=== PATIENT | male | born 1935 | race Caucasian/White ===

== ENCOUNTER → 2017-02-14 | Outpatient (CLI) | payer OTHER ==
[~2017-02-14] MED LIST: ASPIR 8181 MG PO; LIPITOR 20 MG T20 M1 PO; METOPROLOL SUCC50 MG PO; PLAVIX 75 MG TA75 MG PO; PROTONIX40 M4 PO; VYTORIN 10-401 EACH PO; ZOLOFT50 MG PO
[2017-02-14 09:27] LABS: CALCIUM 8.7 mg/dL (8.5-10.1); CREATININE 1.2 mg/dL (0.7-1.3); POTASSIUM 4.4 mmol/L (3.5-5.1)
== END ==
LOC: LAB 08:38
PROVIDERS: Internal Medicine
DX: I71.4 Abdominal aortic aneurysm, without rupture (principal); I70.90 Unspecified atherosclerosis; K80.80 Other cholelithiasis without obstruction

== ENCOUNTER 2017-04-10 05:27 | Inpatient (IN) | payer OTHER ==
[2017-04-05 10:07] LABS: HEMATOCRIT 42.3 % (42.0-52.0); HEMOGLOBIN 14.2 gm/dL (14.0-18.0); MCH 30.7 pg (26.0-34.0); MCHC 33.5 g/dL (28.0-37.0); MCV 91.7 fL (80.0-100.0); RBC 4.61 mil/uL (4.50-6.00); RDW 14.2 % (10.5-14.5); WBC 6.9 thou/uL (4.0-11.0)
[2017-04-05 10:08] LABS: URINE BILIRUBIN NEGATIVE (Negative); URINE BLOOD NEGATIVE (Negative); URINE COLOR YELLOW; URINE GLUCOSE-RANDOM* NEGATIVE (Negative); URINE KETONES NEGATIVE (Negative); URINE LEUKOCYTES-REFLEX NEGATIVE (Negative); URINE PROTEIN (DIPSTICK) NEGATIVE (Negative); URINE UROBILINOGEN 0.2 E.U./dl (0.2-1.0)
[2017-04-05 10:21] LABS: ALBUMIN 3.9 g/dL (3.4-5.0); APTT 28.3 Seconds (24.5-32.8); CALCIUM 8.9 mg/dL (8.5-10.1); CREATININE 1.2 mg/dL (0.7-1.3); POTASSIUM 4.4 mmol/L (3.5-5.1); PROTIME 10.3 Seconds (9.3-11.4); TOTAL BILIRUBIN 0.6 mg/dL (<0.1-1.0); TOTAL PROTEIN 7.4 g/dL (6.4-8.2)
[2017-04-10] VITALS (37 sets, daily range): BP systolic 91–160; BP diastolic 41–98
[~2017-04-10] VITALS: Ht 167.6 cm; Wt 78.9 kg
--- NOTE | ~2017-04-10 | EKG ---
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 04/11/17 0826 10 10 Keanu Brown MD, [facility] /EPI
--- NOTE | ~2017-04-10 | HC ---
[facility] [address] CONSULTATION Name: JAMES RYAN Gagandeep Room #: 203-P [facility] IN M.R.#: [id number] Admission: 04/10/17 Attend Phys: Mihir Jasso MD Discharge: 04/12/17 Date of : 35 Report #: [id number] THIS REPORT FOR: //name// CC: Brandon Jasso MD REASON FOR CONSULTATION: Sore throat. HISTORY OF PRESENT ILLNESS: This is an 81-year-old male who went through an angiographic AAA stent placement. He did have local anesthetic as well as sedations and had some suctioning of his throat afterward. He has had severe sore throat since then. His uvula is markedly swollen. PHYSICAL EXAMINATION: EARS: Normal tympanic membranes. NOSE: Normal mucosa. ORAL: Swollen, inflamed uvula. NECK: No adenopathy or palpable masses. ASSESSMENT: Acute uvula trauma and inflammation likely from oral suctioning. RECOMMENDATIONS: 1. Pain management with ibuprofen or naproxen sodium. 2. Ice or cool liquids. 3. If bothersome enough, consider Medrol Dosepak. 4. Follow up p.r.n. By: [id number] Lefty Whaley MD /nt
--- NOTE | ~2017-04-10 | O ---
[facility] [place] [address] OPERATIVE REPORT Name: JAMES RYAN Gagandeep Room #: 203-P [facility] IN M.R.#: [id number] Admission: 04/10/17 Attend Phys: Mihir Jasso MD Discharge: 04/12/17 Date of : 35 Report #: [id number] THIS REPORT FOR: //name// CC: Brandon Jasso DATE OF SERVICE: 04/10/2017 PREOPERATIVE DIAGNOSIS: Abdominal aortic aneurysm. POSTOPERATIVE DIAGNOSIS: Abdominal aortic aneurysm. OPERATION: Stent graft implant for abdominal aortic aneurysm with appropriate arteriography and angioplasty of common iliac arteries. SURGEON: Mihir Jasso MD and Oseas Ardon MD. CHEMICAL PLANT TECHNICAL DIRECTOR: Luke. ANESTHESIA: General. INDICATIONS: The patient is an 81-year-old with an infrarenal abdominal aortic aneurysm. The patient has aneurysm in the 5 cm range. In addition, he has bilateral common iliac stenoses (right worse than left). FINDINGS AND TECHNIQUE: After general anesthesia was established, incisions were made in the groins to expose the common deep and superficial femoral artery on each side, 10,000 units of heparin were given. On each side, 6-Syrian introducer sheaths were placed using Amplatz needle, wire, and Seldinger technique. Exchanged catheters were passed over wires and used to place Amplatz stiff wires over these on each side. Femoral artery cutdown was done and on the right side, the 18-Syrian sheath was placed; on the left side, the 12-Syrian sheath was placed. With the sheaths in place, the ipsilateral main component was introduced. A 26 x 12 mm x 14 cm device was placed through the left side. A visceral catheter was used to gain access to the left lowest renal artery and this was selectively catheterized and a wire was placed in it and using this as our guide, we were able to land the main component accurately below the renal arteries. The contralateral gate was cannulated and then presence within the main component was ascertained with the pigtail spin technique. [facility] [address] [place] [address] OPERATIVE REPORT Name: CONNORJAMES Room #: 203-P [facility] IN M.R.#: [id number] Admission: 04/10/17 Attend Phys: Mihir Jasso MD Discharge: 04/12/17 Date of : 35 Report #: [id number] A left iliac sheath shot was done to measure the distance between the contralateral gate and the hypogastric artery. Using this information, we placed a 14 mm x 14 cm contralateral component. This landed just above the hypogastric. The main component was fully deployed and then, a balloon was used to fully distend all of the components. It should be mentioned that prior to placing the main component, angioplasty was done of the common iliac stenoses using 8 mm balloons on the right side and then the left side sequentially. After the components were in place, then a secondary more definitive angioplasty was done using 14 mm balloon. When the angioplasty was complete and all of the component devices had been fully distended with the compliant balloons, then an arteriogram was done. This showed good position of the graft with no evidence of endoleak. Dilators and sheaths were removed over the wires and then, the wires themselves were removed and then on each side, the femoral artery cutdown was closed with interrupted Prolene. Flow was reestablished. Protamine was given to reverse the heparin and hemostasis was ascertained. The groins were closed in the usual fashion and the patient was taken to the recovery area in good condition having tolerated the procedure well. All counts reported as correct. <ELECTRONICALLY SIGNED> By: Mihir Jasso MD 04/16/17 1325 1915 1939 Mihir Jasso MD /nt
[~2017-04-10 05:27] MED LIST changes: +IBUPROFEN200 M1 PO; +NORVASC5 MG PO; +PLAVIX 75 MG TA75 M1 PO
[2017-04-11] VITALS (49 sets, daily range): BP systolic 83–156; BP diastolic 44–120
[2017-04-11 05:18] LABS: HEMATOCRIT 33.4 % (42.0-52.0); HEMOGLOBIN 11.4 gm/dL (14.0-18.0); MCH 31.1 pg (26.0-34.0); MCHC 34.1 g/dL (28.0-37.0); MCV 91.3 fL (80.0-100.0); RBC 3.65 mil/uL (4.50-6.00); WBC 8.2 thou/uL (4.0-11.0)
[2017-04-11 05:27] LABS: CALCIUM 7.7 mg/dL (8.5-10.1); CREATININE 1.3 mg/dL (0.7-1.3); POTASSIUM 3.4 mmol/L (3.5-5.1)
[2017-04-12 03:59] VITALS: BP 132/57
[2017-04-12 07:42] VITALS: BP 136/71
[2017-04-12 11:47] VITALS: BP 133/52
[2017-04-12 15:14] VITALS: BP 133/52
[2017-04-12] MEDS ORDERED: AUGMENTIN 875-1 EACH PO (15:36)
== END 2017-04-12 15:39 | disposition home or self-care (01) | DRG 268 ==
LOC: TBA 05:27 → ICU 05:27 → 2N 04-11 18:40
PROVIDERS: Physician Assistant; Surgery Vascular Surgery
PROC: 047C3ZZ Dilation of Right Common Iliac Artery, Percutaneous Approach (ICD-10-PCS; principal; 2017-04-10)
PROC: B4181ZZ Fluoroscopy of Bilateral Renal Arteries using Low Osmolar Contrast (ICD-10-PCS; principal; 2017-04-10)
PROC: 047D3ZZ Dilation of Left Common Iliac Artery, Percutaneous Approach (ICD-10-PCS; principal; 2017-04-10)
PROC: 04V03DZ Restriction of Abdominal Aorta with Intraluminal Device, Percutaneous Approach (ICD-10-PCS; principal; 2017-04-10)
DX: I71.4 Abdominal aortic aneurysm, without rupture (principal); G93.40 Encephalopathy, unspecified; K12.2 Cellulitis and abscess of mouth; Z88.2 Allergy status to sulfonamides; Z79.899 Other long term (current) drug therapy; Z79.82 Long term (current) use of aspirin
CPT/HCPCS: 10078; 47375; 48888; 50010; 50101; 50386; 50455; 51078; 51751; 54118; 56524; 56526; 56531; 56668; 56760; 57093; 62110; 62900; 65020; 65040; 70005

== ENCOUNTER → 2017-04-24 | Outpatient (CLI) | payer OTHER ==
[~2017-04-24] MED LIST changes: +AUGMENTIN 875-1 EACH PO
[2017-04-24 09:24] LABS: CREATININE 1.4 mg/dL (0.7-1.3)
[2017-04-24 14:33] LABS: HIV-1 P24 AG Nonreactive (Nonreactive)
[2017-04-25 23:08] LABS: HBsAG-EMPLOYEE EXPOSURE Negative (Negative); HCV AB-EMPLOYEE EXPOSURE <0.1 (0.0-0.9)
== END ==
LOC: CAT 08:41
PROVIDERS: Nuclear Medicine Nuclear Cardiology
DX: I71.4 Abdominal aortic aneurysm, without rupture (principal); Z95.828 Presence of other vascular implants and grafts

== ENCOUNTER → 2019-02-24 | Outpatient (CLI) | payer OTHER ==
[2019-02-24 08:49] LABS: CALCIUM 9.5 mg/dL (8.5-10.1); CREATININE 1.4 mg/dL (0.7-1.3); POTASSIUM 4.3 mmol/L (3.5-5.1)
== END ==
LOC: CAT 08:10
PROVIDERS: Internal Medicine
DX: I71.4 Abdominal aortic aneurysm, without rupture (principal); K55.069 Acute infarction of intestine, part and extent unspecified; I70.1 Atherosclerosis of renal artery; K80.20 Calculus of gallbladder without cholecystitis without obstruction; M47.814 Spondylosis without myelopathy or radiculopathy, thoracic region; M47.816 Spondylosis without myelopathy or radiculopathy, lumbar region; Z88.2 Allergy status to sulfonamides; Z98.890 Other specified postprocedural states; Z86.79 Personal history of other diseases of the circulatory system

== ENCOUNTER → 2019-08-20 | Outpatient (CLI) | payer OTHER ==
[2019-08-20 09:14] LABS: CALCIUM 9.3 mg/dL (8.5-10.1); CREATININE 1.2 mg/dL (0.7-1.3); POTASSIUM 3.8 mmol/L (3.5-5.1)
--- NOTE | 2019-09-01 12:28 | PFR/MVV ---
[facility] [place] [address] PULMONARY FUNCTION MVV/REPORT Name: JAMES RYAN Room #: REG [facility]#: [id number] Admission: 08/20/19 Attend Phys: Keanu Brown MD, [facility] Discharge: Date of : 35 Report #: [id number] THIS REPORT FOR: //name// COPIES FOR: AGE: 83 SEX/RACE: M/C >> SPIROMETRY: (BTPS) Height: 65 in cm Weight: 164 lbs kg Exam Date: 08/20/19 PRE-RX POST-RX PRED BEST %PRED BEST %PRED %CHG FVC LITERS . 3.30 . 1.94 . 59 . 2.26 . 68 . 16 FEV1 LITERS . 2.06 . 0.88 . 43 . 1.03 . 50 . 17 FEV1/FVC % . 67 . 45 . 68 . 46 . 68 . 0 HZV74-07% L/Sec . 1.83 . 0.39 . 21 . 0.34 . 19 . -13 PEF L/SEC . 6.62 . 2.68 . 40 . 2.12 . 32 . -21 FEF50/FIF50 UNITLESS . . 1.15 . . . . MVV L/Min . 94 . 11 . 12 f 1/Min . . 110 . >> LUNG VOLUMES: (BTPS) PRE-RX POST-RX PRED AVG %PRED AVG %PRED %CHG VC Liters . 3.30 . 2.27 . 69 . . . TLC Liters . 5.12 . 5.67 . 111 . . . RV Liters . 2.42 . 3.40 . 140 . . . RV/TLC % . 45 . 60 . 133 . . . FRC [address] Liters . 3.02 . 3.96 . 131 . . . FRC N2 Liters . . . . . . ERV Liters . 1.15 . 0.56 . 49 . . . IC Liters . 2.29 . 1.85 . 81 . . . >> DIFFUSION: DLCO ml/Min/mmHg . 15.2 . 3.0 . 20 . . . DL Pepe ml/Min/mmHg . 15.2 . 3.0 . 20 . . . DLCO/VA ml/Min/mmHg . 3.22 . 0.03 . 1 . . . VA Liters . . . . . . [facility] [address] [place] [address] PULMONARY FUNCTION MVV/REPORT Name: JAMES RYAN Gagandeep Room #: [facility]#: [id number] Admission: 08/20/19 Attend Phys: Keanu Brown MD, [facility] Discharge: Date of : 35 Report #: [id number] COMMENTS: COMMENTS: >> RESISTANCE: PRE-RX PRED AVG %PRED Raw Total cmH20/L/Sec . . 10.48 . Raw Insp cmH20/L/Sec . . 10.24 . Raw Exp cmH20/L/Sec . . 6.33 . Raw cmH20/L/Sec . 1.56 . 7.87 . 506 Gaw L/Sec/cmH20 . 0.726 . 0.127 . 18 sRaw cmH20 Sec . 4.71 . 41.75 . 887 sGaw l/cmH20 Sec . 0.212 . 0.024 . 11 Vtq Liters . . 5.30 . # = OUTSIDE 95% CONFIDENCE INTERVAL CALIBRATION: PRED: 3.00 ACTUAL: EXP 3.01 INSP 3.02 [facility]-OL10-06 [facility]-05 N-1804-4 >> INTERPRETATION/IMPRESSION: CC: Keanu Alcaraz DATE OF SERVICE: 08/27/2019 SPIROMETRY: FEV1 is 0.88 liters (43%), FVC is 1.94 liters (59%), FEV1/FVC ratio is 45%. Post-bronchodilator therapy, FEV1 is 1.03 liters (17% change), FVC is 2.26 liters (16% change). Total lung capacity is 111% at 5.67 liters. RV 3.4 liters (140%). Diffusing capacity is 20%. IMPRESSION: Pulmonary function studies are consistent with a moderate - severe obstructive airflow defect with mild air trapping. There is a significant response to bronchodilator therapy. Diffusing capacity is severely decreased. <ELECTRONICALLY SIGNED> By: Kel Barber MD 09/01/19 1228 Kel Barber MD /nt
== END ==
LOC: PUL 08:36 → CAT 08:36
PROVIDERS: Internal Medicine
DX: J84.10 Pulmonary fibrosis, unspecified (principal); I25.10 Atherosclerotic heart disease of native coronary artery without angina pectoris; K80.20 Calculus of gallbladder without cholecystitis without obstruction; M47.814 Spondylosis without myelopathy or radiculopathy, thoracic region; Z88.2 Allergy status to sulfonamides

== ENCOUNTER → 2019-10-05 | Outpatient (CLI) | payer OTHER ==
[~2019-10-05] VITALS: Ht 162.6 cm; Wt 76.2 kg
[~2019-10-05] MED LIST changes: +ANORO ELLIPTA1 EACH PO; +KLOR-CON 10 ER10 MEQ PO; +PROAIR HFA8.5 GM INH; +TORSEMIDE10 MG PO
[2019-10-05 13:11] VITALS: BP 130/59
--- NOTE | 2019-10-05 13:34 | NUR ---
Pain Clinic Assessment: 1. History of Osteoarthritis: NONE History of Rheumatoid Arthritis: NONE 2. Height: 5 ft. 4 in. 162.6 cm. Weight: 168.0 lb. oz. 76.204 kg. Patient's BMI: 28.8 3. Vital Signs: BP: 130/59 Pulse: 78 Resp: 16 Temp: 02 Sat: 98 ECG Mon: 4. Pain Intensity: 7 5. Fall Risk: Dizziness: N Needs help standing or walking: N Fallen in the last 3 months: N Fall risk comments: 6. Patient on Blood Thinner: Clopidogrel Bisulf(Plavix 7. History of Hypertension: Y 8. Opioid Therapy greater than 6 weeks: Opiate Contract Signed: 9. Risk Assessment Tool Provided: LOW 10. Functional Assessment Tool: 11. Recreational Drug Use: Never Drug Type: Tobacco Use: Never Smoker Tobacco Type: Amount or Packs/day: How Many Years: Alcohol Use: No Frequency: Quant:
== END ==
LOC: PAIN 06:59
DX: M54.16 Radiculopathy, lumbar region (principal); I10 Essential (primary) hypertension; I25.10 Atherosclerotic heart disease of native coronary artery without angina pectoris; Z79.899 Other long term (current) drug therapy; Z79.82 Long term (current) use of aspirin; Z88.2 Allergy status to sulfonamides

== ENCOUNTER → 2019-10-22 | Outpatient (CLI) | payer OTHER ==
[~2019-10-22] VITALS: Ht 162.6 cm; Wt 77.5 kg
--- NOTE | ~2019-10-22 | HPC ---
[facility] [place] [address] PAIN MANAGEMENT CONSULTATION Name: JAMES RYAN Room #: REG PAVEL Sarita.#: [id number] Admission: 10/22/19 Attend Phys: Miguel Mae MD Discharge: Date of : 35 Report #: [id number] THIS REPORT FOR: //name// CC: OUSMANE Mae DATE OF SERVICE: 10/22/2019 Followup visit for right sacroiliac joint pain. The patient is here today for a right sacroiliac injection. I saw him on 10/05/2019. As I dictated in his chart later in the day, I dictated inappropriately that his pain was more radicular than sacroiliac joint. I reviewed my notes and corrected my 10/05/2019 dictation. Hopefully, we will make sure that is corrected before signed or I will make an addendum. PHYSICAL EXAMINATION: GENERAL: He is pleasant, alert and oriented. VITAL SIGNS: Blood pressure 154/81, heart rate 66, respirations 16, O2 sats 97. MUSCULOSKELETAL: He is able to move independently from sitting to standing position, but his gait is antalgic. A more focused exam today for sacroiliac pain reveals positive pain in the sacroiliac joint with localized tenderness. Straight leg raising does not necessarily cause radicular pain, but does have increase pain in the sacroiliac joint. There is a positive Christian's and a crossover LYNN which causes tenderness and achiness in the sacroiliac joint itself. Examination of joints does not reveal any inflammation or irritation. IMPRESSION: Right sacroiliac joint pain and sacroiliitis. PROCEDURE: Sacroiliac joint under fluoroscopic guidance. DESCRIPTION OF PROCEDURE: He was taken to fluoroscopic suite. He was placed prone, skin prepped with ChloraPrep. Before beginning the procedure, we performed a timeout and acknowledged that he was on Plavix. I had told him that he could remain on it for the sacroiliac injection, which carries low risk while on blood thinners. Skin was anesthetized overlying the posterior inferior aspect of the joint. A 22-gauge needle was advanced in the joint space. After negative aspiration, I injected gently a total of 1.5 mL of 0.5% bupivacaine mixed with 40 mg of triamcinolone. He tolerated the procedure well and was taken to recovery room for observation. Pain score was reduced slightly. [address] [address] PAIN MANAGEMENT CONSULTATION Name: JAMES RYAN Room #: REG CL [place]#: [id number] Admission: 10/22/19 Attend Phys: Miguel Mae MD Discharge: Date of : 35 Report #: [id number] Followup visit planned as needed for further injections. I have referred him to Dr. Gamble because of possible carpal tunnel syndrome. By: [id number] Miguel Mae MD /alanis
[2019-10-22 09:56] VITALS: BP 154/81
--- NOTE | 2019-10-22 10:26 | NUR ---
Pain Clinic Assessment: 1. History of Osteoarthritis: NONE History of Rheumatoid Arthritis: NONE 2. Height: 5 ft. 4 in. 162.6 cm. Weight: 170.8 lb. oz. 77.474 kg. Patient's BMI: 29.3 3. Vital Signs: BP: 154/81 Pulse: 66 Resp: 16 Temp: 02 Sat: 97 ECG Mon: 4. Pain Intensity: 4 5. Fall Risk: Dizziness: N Needs help standing or walking: N Fallen in the last 3 months: N Fall risk comments: 6. Patient on Blood Thinner: Clopidogrel Bisulf(Plavix 7. History of Hypertension: Y 8. Opioid Therapy greater than 6 weeks: N Opiate Contract Signed: 9. Risk Assessment Tool Provided: LOW 10. Functional Assessment Tool: 11. Recreational Drug Use: Never Drug Type: Tobacco Use: Never Smoker Tobacco Type: Amount or Packs/day: How Many Years: Alcohol Use: No Frequency: Quant:
== END | disposition home or self-care (01) ==
LOC: PAIN 06:57
DX: M53.3 Sacrococcygeal disorders, not elsewhere classified (principal); G89.29 Other chronic pain; Z98.890 Other specified postprocedural states; Z88.2 Allergy status to sulfonamides; Z86.73 Personal history of transient ischemic attack (TIA), and cerebral infarction without residual deficits; Z79.899 Other long term (current) drug therapy; Z79.82 Long term (current) use of aspirin

== ENCOUNTER → 2019-11-23 | Outpatient (CLI) | payer OTHER ==
[~2019-11-23] VITALS: Ht 152.4 cm; Wt 75.0 kg
[2019-11-23 12:46] VITALS: BP 137/67
--- NOTE | 2019-11-23 12:58 | NUR ---
Pain Clinic Assessment: 1. History of Osteoarthritis: NONE History of Rheumatoid Arthritis: NONE 2. Height: 5 ft. in. 152.4 cm. Weight: 165.4 lb. oz. 75.025 kg. Patient's BMI: 32.3 3. Vital Signs: BP: 137/67 Pulse: 59 Resp: 16 Temp: 02 Sat: 99 ECG Mon: 4. Pain Intensity: 5 5. Fall Risk: Dizziness: N Needs help standing or walking: N Fallen in the last 3 months: N Fall risk comments: 6. Patient on Blood Thinner: Clopidogrel Bisulf(Plavix 7. History of Hypertension: Y 8. Opioid Therapy greater than 6 weeks: N Opiate Contract Signed: 9. Risk Assessment Tool Provided: LOW 10. Functional Assessment Tool: 11. Recreational Drug Use: Never Drug Type: Tobacco Use: Never Smoker Tobacco Type: Amount or Packs/day: How Many Years: Alcohol Use: No Frequency: Quant:
--- NOTE | 2019-11-26 17:02 | HPC ---
[facility] [address] [place] [address] PAIN MANAGEMENT CONSULTATION Name: JAMES RYAN Room #: REG PAVEL Almazan.#: [id number] Admission: 11/23/19 Attend Phys: Miguel Mae MD Discharge: Date of : 35 Report #: [id number] THIS REPORT FOR: //name// CC: Keanu Brown MD [facility] Brandon Mae DATE OF SERVICE: 11/23/2019 Followup visit for lumbar spondylosis, right sacroiliac joint pain. The patient returns to pain clinic today following his sacroiliac injection on 10/22. He had 2 days of nearly complete pain relief and then the pain returned to baseline. This may have some diagnostic properties and I would suggest that we repeat the injection again today. His pain does not have marked radicular components; however, there may be some radiculopathy involved as well. Pain is worse with standing and weightbearing. PQRS REVIEW: He denies osteoarthritis, but does appear to have spondylitic sacroiliac joint on the right. BMI is 32.3. Blood pressure 137/67, heart rate 59, respirations 16, O2 sat 99. Pain intensity is 5/10. He has not fallen nor is he considered a fall risk. He is on Plavix and has hypertension. Medications have been reviewed and reconciled. He does not take opioid medications, but has completed an opioid risk tool and is considered at low risk. He denies use of tobacco and alcohol. PHYSICAL EXAMINATION: Pleasant gentleman, moves independently from sitting to standing position. His gait is mildly antalgic. He has localized tenderness over the sacroiliac joint. Pain no longer radiates into the groin as it did before, so there may have been some benefit from his initial injection. There is a positive Christian's and a crossover Coco causing tenderness again in the sacroiliac joint on the right. IMPRESSION: 1. Sacroiliac joint pain with sacroiliitis. 2. Lumbar radiculopathy, right, is under consideration as a co-pain generator. PLAN: Repeat sacroiliac injection today under fluoroscopic guidance. PROCEDURE: After informed consent, he was taken to the fluoroscopic suite for the procedure, placed prone. Skin was prepped with ChloraPrep. Skin anesthetized over the right sacroiliac joint. Using biplanar fluoroscopic views, I advanced the needle gently into the sacroiliac joint using approach at the inferior-posterior ligament. After negative aspiration, I injected 0.25 mL of Omnipaque to demonstrate an arthrogram and then followed by 2 mL of 0.25% [address] [address] PAIN MANAGEMENT CONSULTATION Name: JAMES RYAN Room #: REG PAVEL [place]#: [id number] Admission: 11/23/19 Attend Phys: Miguel Mae MD Discharge: Date of : 35 Report #: [id number] bupivacaine mixed with 40 mg of triamcinolone. He tolerated the procedure well and was in good condition with a pain score of 0 at discharge. Follow up as needed. <ELECTRONICALLY SIGNED> By: Miguel Mae MD 11/26/19 1702 1818 2307 Miguel Mae MD /nt
== END | disposition home or self-care (01) ==
LOC: PAIN 07:01
DX: M53.3 Sacrococcygeal disorders, not elsewhere classified (principal); M54.16 Radiculopathy, lumbar region; I10 Essential (primary) hypertension; G89.29 Other chronic pain; Z98.890 Other specified postprocedural states; Z79.899 Other long term (current) drug therapy; Z86.73 Personal history of transient ischemic attack (TIA), and cerebral infarction without residual deficits; Z88.2 Allergy status to sulfonamides

== ENCOUNTER → 2019-12-03 | Outpatient (CLI) | payer OTHER | LOC: SJCVC 11:18 | DX: I25.811 Atherosclerosis of native coronary artery of transplanted heart without angina pectoris (principal); I11.0 Hypertensive heart disease with heart failure; I50.32 Chronic diastolic (congestive) heart failure; I65.23 Occlusion and stenosis of bilateral carotid arteries; I71.4 Abdominal aortic aneurysm, without rupture; E78.00 Pure hypercholesterolemia, unspecified; Z79.899 Other long term (current) drug therapy; Z95.828 Presence of other vascular implants and grafts; Z86.79 Personal history of other diseases of the circulatory system ==

== ENCOUNTER → 2020-06-02 | Outpatient (CLI) | payer OTHER | LOC: SJCVC 12:59 | PROVIDERS: ATTEND Internal Medicine | DX: I25.811 Atherosclerosis of native coronary artery of transplanted heart without angina pectoris (principal); I11.0 Hypertensive heart disease with heart failure; I50.32 Chronic diastolic (congestive) heart failure; I65.23 Occlusion and stenosis of bilateral carotid arteries; E78.5 Hyperlipidemia, unspecified; I71.4 Abdominal aortic aneurysm, without rupture; Z95.828 Presence of other vascular implants and grafts; Z79.899 Other long term (current) drug therapy; Z87.891 Personal history of nicotine dependence; Z86.79 Personal history of other diseases of the circulatory system ==

== ENCOUNTER → 2020-12-06 | Outpatient (CLI) | payer OTHER | LOC: SJCVCIMAG 08:26 | PROVIDERS: ATTEND Internal Medicine | DX: I08.0 Rheumatic disorders of both mitral and aortic valves (principal); R00.0 Tachycardia, unspecified; I25.811 Atherosclerosis of native coronary artery of transplanted heart without angina pectoris; I11.0 Hypertensive heart disease with heart failure; I50.32 Chronic diastolic (congestive) heart failure; E78.5 Hyperlipidemia, unspecified; E78.00 Pure hypercholesterolemia, unspecified; Z95.828 Presence of other vascular implants and grafts; Z98.890 Other specified postprocedural states; Z88.8 Allergy status to other drugs, medicaments and biological substances; Z79.899 Other long term (current) drug therapy; Z86.79 Personal history of other diseases of the circulatory system; Z86.73 Personal history of transient ischemic attack (TIA), and cerebral infarction without residual deficits; Z87.891 Personal history of nicotine dependence; Z82.49 Family history of ischemic heart disease and other diseases of the circulatory system ==

== ENCOUNTER → 2021-07-03 | Outpatient (CLI) | payer OTHER | LOC: SJCVCIMAG 06-15 09:01 | PROVIDERS: ATTEND Internal Medicine | DX: I49.3 Ventricular premature depolarization (principal); I25.811 Atherosclerosis of native coronary artery of transplanted heart without angina pectoris; I11.0 Hypertensive heart disease with heart failure; I50.32 Chronic diastolic (congestive) heart failure; E78.5 Hyperlipidemia, unspecified; Z95.828 Presence of other vascular implants and grafts; Z86.79 Personal history of other diseases of the circulatory system; Z79.899 Other long term (current) drug therapy; Z79.891 Long term (current) use of opiate analgesic; Z87.891 Personal history of nicotine dependence; Z72.89 Other problems related to lifestyle; Z88.2 Allergy status to sulfonamides ==

== ENCOUNTER → 2021-08-31 | Outpatient (CLI) | payer OTHER | LOC: RAD 09:15 | PROVIDERS: ATTEND Internal Medicine | DX: J44.9 Chronic obstructive pulmonary disease, unspecified (principal); I70.0 Atherosclerosis of aorta ==